=== PATIENT | female | born 1955 | race Caucasian/White ===

== ENCOUNTER 2024-09-22 06:22 | Day surgery (SDC) | payer MEDICARE, SELFPAY | END 2024-09-22 08:52 | disposition home or self-care (01) | LOC: GI 06:22 | PROVIDERS: ATTENDING PHYSICIAN Internal Medicine | DX: Z12.11 Encounter for screening for malignant neoplasm of colon (principal); K64.4 Residual hemorrhoidal skin tags; K64.8 Other hemorrhoids; K58.9 Irritable bowel syndrome, unspecified; Q43.8 Other specified congenital malformations of intestine; Z86.0100 Personal history of colon polyps, unspecified | CPT/HCPCS: G0105 ==

== ENCOUNTER → 2025-05-08 10:07 | Outpatient (REF) | payer MEDICARE, SELFPAY | LOC: RCS 10:07 | PROVIDERS: ATTENDING PHYSICIAN Family Medicine | DX: Z01.818 Encounter for other preprocedural examination (principal); E78.2 Mixed hyperlipidemia; R94.31 Abnormal electrocardiogram [ECG] [EKG] | CPT/HCPCS: 93017; 93350 ==